=== PATIENT | male | born 1950 | race Caucasian/White ===

== ENCOUNTER 2024-01-13 17:46 | Emergency (ER) | payer MEDICARE, SELFPAY ==
--- NOTE | ~2024-01-13 | CT_ITS ---
EXAMINATION: CT HEAD WITHOUT CONTRAST CLINICAL INFORMATION: Altered mental status. COMPARISON: None available. TECHNIQUE: Contiguous axial imaging was performed from the skull base to vertex without intravenous administration of contrast. This CT examination was performed using dose optimization techniques as appropriate, variously including the following: *Automated exposure control. *Adjustment of mA and/or kV according to patient size (this includes techniques or standardized protocols for targeted exams where dose is matched to indication/reason for exam; i.e. extremities or head). *Use of iterative reconstruction technique. DLP: 759 mGy-cm FINDINGS: There is no evidence of acute intracranial hemorrhage or edematous territorial infarction. Doyle-white matter differentiation is preserved. A few foci of hypoattenuation in the periventricular and deep white matter are consistent with mild microangiopathy. Proportional prominence of the ventricles and sulcal spaces without evidence of obstructive hydrocephalus. No abnormal mass effect or midline shift. No extra-axial fluid collections. Calcific atherosclerotic disease of the intracranial internal carotid arteries. No hyperdense vessel sign. No acute soft tissue or osseous abnormalities. Mild mucosal thickening of the paranasal sinuses. The mastoid air cells and middle ear cavities are clear. Bilateral lens extractions. CT/CT head/brain wo IV con IMPRESSION: 1. No evidence of acute intracranial hemorrhage or edematous territorial infarction. 2. Mild underlying microangiopathy and generalized cerebral volume loss.
--- NOTE | ~2024-01-13 | XR_ITS ---
EXAMINATION: XR CHEST CLINICAL INFORMATION: AMS. COMPARISON: None available. TECHNIQUE: Frontal view of the chest was obtained. FINDINGS: The lungs are expanded and clear of acute process. Heart size and pulmonary vascularity is normal. There is mild elevation of left hemidiaphragm. No gross bony abnormality seen. XR/XR chest 1V IMPRESSION: Mild elevation of left hemidiaphragm. No acute process seen.
--- NOTE | 2024-01-13 17:52 | ECG_ITS ---
Test Reason : AMS Blood Pressure : / mmHG Vent. Rate : 078 BPM Atrial Rate : 078 BPM P-R Int : 176 ms QRS Dur : 102 ms QT Int : 406 ms P-R-T Axes : 053 -15 093 degrees QTc Int : 462 ms Normal sinus rhythm Nonspecific T wave abnormality Abnormal ECG No previous ECGs available Referred By: Larry Lucas Electronically Signed By:ANI KENNEY
--- NOTE | 2024-01-13 17:56 | ED_ITS ---
HPI - Altered Mental Status General Chief Complaint: Altered Mental Status Stated Complaint: ACTING CONFUSED, FOUND IN VOMIT,DIFF STANDING Time Seen by Provider: 01/13/24 17:49 Source: patient Mode of arrival: ambulatory Limitations: no limitations History of Present Illness ED Provider: robert BEAR narrative: Patient is healthy otherwise was seen normal at 08:30 when left for 10 hours when she came home at 16:30 just prior to arrival noticed him sitting on couch covered in vomitus slow to respond was not talking much when ambulance arrived no focal deficit noticed on arrival patient has a normal comprehension articulation no focal deficit noticed Related Data Allergies Allergy/AdvReac Type Severity Reaction Status Date / Time No Known Allergies Allergy Verified 01/13/24 18:06 Review of Systems 2 Review of Systems: Yes all other systems are reviewed and are negative [facility] Social History Social History Smoked in Last 30 Days: No Advance Directives: No Advance Directives Information Provided: No Physical Exam ED Vital Signs: Vital Signs - 24 hr 01/13/24 18:03 01/13/24 18:07 01/13/24 18:59 Temperature 97.5 F 97.5 F 97.6 F Pulse Rate 80 80 78 Respiratory Rate 15 15 20 Blood Pressure 147/63 H 147/63 H 136/51 L Pulse Oximetry 92 92 92 Oxygen Delivery Method Room Air Room Air Room Air 01/13/24 21:37 01/14/24 00:12 Temperature 97.5 F 97.5 F Pulse Rate 78 95 Respiratory Rate 16 17 Blood Pressure 116/59 L 136/66 Pulse Oximetry 95 59 L Oxygen Delivery Method Room Air Room Air BMI result Body Mass Index 31.0 Appearance: Alert. Oriented X3. No acute distress. Slow to respond look sick Eyes: PERRLA, No Nystagmus ENT: Pharynx normal. Oral Mucosa moist Neck: Normal inspection. Neck supple. CVS: Normal heart rate and rhythm. Pulses normal. Respiratory: No respiratory distress. Equal air entry bilateral, no wheezing/rales/rhonchi Abdomen: Soft and nontender. Bowel sounds are present, no mass palpable, no CVA tenderness Skin: Skin warm and dry. Normal skin color. Normal skin turgor. Extremities: No lower extremity edema. No calf tenderness Neuro: Oriented X 3. No motor deficit. No sensory deficit.No cerebellar signs , cranial nerves II-XII intact NIH Stroke Scale Internal: Initial- Upon Arrival Level of Consciousness: Alert Level of Consciousness Questions: Answers both questions correctly Level of Consciousness Commands: Performs both tasks correctly Best Gaze: Normal Visual: No visual loss Facial Palsy: Normal Motor Arm (Right): No drift Motor Arm (Left): No drift Motor Leg (Right): No drift Motor Leg (Left): No drift Limb Ataxia: Absent Sensory: Normal Best Language: No aphasia Dysarthia: Normal Extinction and Inattention: No abnormality Score: 0 Medications Administered Discontinued Medications Generic Name Dose Route Start Last Admin Trade Name Freq PRN Reason Stop Dose Admin Sodium Chloride 1,000 mls @ 999 mls/hr 01/13/24 17:52 01/13/24 19:12 Ns IV 01/13/24 18:52 Infused .Q1H1M ONE Infusion Sodium Chloride 1,000 mls @ 999 mls/hr 01/13/24 18:50 01/13/24 19:59 Ns IV 01/13/24 19:50 Infused .Q1H1M ONE Infusion Medical Decision Making Medical Decision Making [facility] Narrative: Patient has acute vomiting and weakness no focal findings of CVA head CT is negative for acute labs are pending will give fluids likely symptoms from metabolic encephalopathy 1845 's told us that patient ate whole marijuana chocolate bar by mistake just prior to this that made him vomit and feel sleepy and groggy 0100 patient is sleeping at this time placed on physician observation till he wakes up and sober to go home Differential Diagnosis Differential Diagnoses: The differential diagnosis associated with the presentation includes Metabolic encephalopathy/stroke/substance abuse Lab Data [facility] Lab Attestation statement: I reviewed the patient's lab results. 01/13/24 18:09 01/13/24 18:09 Labs: Lab Results 01/13/24 01/13/24 01/13/24 Range/Units 17:50 17:53 18:09 WBC 7.5 (4.8-10.8) X10*3/uL RBC 5.04 (4.60-5.80) X10*6/uL Hgb 16.0 (14.0-18.0) g/dl Hct 46.1 (42.0-52.0) % MCV 91.5 (80.0-98.0) fL MCH 31.7 (27.0-33.0) pg MCHC 34.7 (31.0-36.0) g/dl RDW 13.6 (11.0-16.0) % Plt Count 124 L (160-400) X10*3/uL MPV 11.7 (9.4-12.4) fL Immature Gran % (Auto) 0.5 H (0.0-0.4) % Neut % (Auto) 79.7 H (45-73) % Lymph % (Auto) 12.1 L (20-40) % Hamilton % (Auto) 5.2 (2-11) % Eos % (Auto) 2.4 (0-4) % Baso % (Auto) 0.1 (0-2) % Lymph # (Auto) 0.9 L (1.2-4.9) X10*3/uL Hamilton # (Auto) 0.4 (0.1-1.2) X10*3/uL Eos # (Auto) 0.2 (0.0-0.4) X10*3/uL Baso # (Auto) 0.0 (0.0-0.2) X10*3/uL Abs Immat Gran (auto) 0.04 H (0.00-0.03) X10*3/uL Absolute Neuts (auto) 5.9 (2.0-8.3) x10*3/uL Absolute Nucleated RBC 0.000 (0.0-0.012) X10*3/uL Nucleated RBC % (auto) 0.0 (0.0-0.2) /100WBC PT 11.7 (11.1-13.3) SEC Whole Blood PT 13.4 (11.1-13.5) sec INR 1.0 (0.9-1.1) Whole Blood INR 1.1 (0.9-1.1) Sodium 142 (135-145) mmol/L Potassium 4.2 (3.3-5.1) mmol/L Chloride 108 (96-108) mmol/L Carbon Dioxide 23 (22-29) mmol/L Anion Gap 15 (12-20) BUN 16 (9-16) mg/dL Creatinine 0.93 (0.5-1.4) mg/dL Estim Creat Clear Calc 90.4 Estimated GFR > 60 POC Glucose 183 H (60-115) mg/dL Random Glucose 177 H (60-115) mg/dL Calcium 8.8 (8.4-10.2) mg/dL Magnesium 2.2 (1.6-2.6) mg/dL Total Bilirubin 0.4 (0.0-1.0) mg/dL AST 19 (5-37) U/L ALT 24 (0-40) U/L Alkaline Phosphatase 94 (39-117) U/L Total Protein 7.0 (6.5-8.0) g/dL Albumin 4.2 (3.5-5.0) g/dL Lipase 14 (8-78) U/L Discharge Plan Discharge Clinical Impression: Altered mental status, Drug ingestion, accidental Patient Disposition: Still a Patient Instructions: Altered Mental Status (ED), Adult Overdose (ED) Print Language: Grenadian
[2024-01-13 17:59] LABS: Glucose, Whole Blood 183 mg/dL (60-115)
[2024-01-13 18:03] VITALS: BP 147/63; PULSE 80; RESP 15; TEMP 36.4; O2SAT 92; BMI 31.0
[2024-01-13 18:07] VITALS: BP 147/63; PULSE 80; RESP 15; TEMP 36.4; O2SAT 92
[2024-01-13] MEDS: 0.9 % Sodium Chloride 1,000 ML 999 ML IV ×2 (18:11→18:58)
[2024-01-13 18:13] LABS: MANUAL DIFF FLAG NO
[2024-01-13 18:22] LABS: Prothrombin Time Whole Bld POC 13.4 sec (11.1-13.5); ~PT, ~INR - Anti Coag Clinic 1.1 (0.9-1.1)
[2024-01-13 18:28] LABS: Alanine Aminotransferase 24 U/L (0-40); Albumin Level 4.2 g/dL (3.5-5.0); Alkaline Phosphatase 94 U/L (39-117); Anion Gap 15 (12-20); Aspartate Amino Transferase 19 U/L (5-37); Bilirubin Total 0.4 mg/dL (0.0-1.0); Blood Urea Nitrogen 16 mg/dL (9-16); Calcium 8.8 mg/dL (8.4-10.2); Carbon Dioxide 23 mmol/L (22-29); Chloride 108 mmol/L (96-108); Creatinine Clr Calc Pharmacy 90.4; Estimated Glomerular Filt Rate > 60; Glucose Random 177 mg/dL (60-115); Lipase 14 U/L (8-78); Magnesium 2.2 mg/dL (1.6-2.6); Potassium 4.2 mmol/L (3.3-5.1); Prothrombin Time 11.7 SEC (11.1-13.3); Sodium 142 mmol/L (135-145)
[2024-01-13 18:45] LABS: Basophils Percent Auto 0.1 % (0-2); Eosinophils Absolute Auto 0.2 X10*3/uL (0.0-0.4); Eosinophils Percent Auto 2.4 % (0-4); Hematocrit 46.1 % (42.0-52.0); Imm Gran Abs Auto 0.04 X10*3/uL (0.00-0.03); Imm Gran Pct Auto 0.5 % (0.0-0.4); Lymphocytes Absolute Auto 0.9 X10*3/uL (1.2-4.9); Lymphocytes Percent Auto 12.1 % (20-40); Mean Corpuscular HGB Conc 34.7 g/dl (31.0-36.0); Mean Corpuscular Hemoglobin 31.7 pg (27.0-33.0); Mean Corpuscular Volume 91.5 fL (80.0-98.0); Mean Platelet Volume 11.7 fL (9.4-12.4); Monocytes Absolute Auto 0.4 X10*3/uL (0.1-1.2); Monocytes Percent Auto 5.2 % (2-11); Neutrophils Absolute Auto 5.9 x10*3/uL (2.0-8.3); Neutrophils Percent Auto 79.7 % (45-73); Platelet Count 124 X10*3/uL (160-400); Red Blood Count 5.04 X10*6/uL (4.60-5.80); Red Cell Distribution Width 13.6 % (11.0-16.0); White Blood Count 7.5 X10*3/uL (4.8-10.8)
[2024-01-13 18:59] VITALS: BP 136/51; PULSE 78; RESP 20; TEMP 36.4; O2SAT 92
--- NOTE | 2024-01-13 18:59 | PC.NURSE ---
this rn assumed care of pt. pt able to follow commands at this time. pt disclosed at this time that he ate a full marijuana chocolate bar. pt alert. normal sinus on tele 79-80bpm. iv fluid bolus begun at this time.
[2024-01-13 21:37] VITALS: BP 116/59; PULSE 78; RESP 16; TEMP 36.4; O2SAT 95
[2024-01-14 00:12] VITALS: BP 136/66; PULSE 95; RESP 17; TEMP 36.4; O2SAT 59
--- NOTE | 2024-01-14 01:03 | PC.NURSE ---
pt resting in stretcher, no acute distress noted. respirations even and unlabored.
[2024-01-14 06:36] VITALS: BP 153/64; PULSE 55; RESP 17; TEMP 37.1; O2SAT 97
--- NOTE | 2024-01-14 06:37 | PC.NURSE ---
pt up at bedside obtaining urine sample in urinal, with steady gait
[2024-01-14 06:53] LABS: Appearance Urine Clear; Color Urine Yellow; Glucose Urine UA >=1000 mg/dL (Negative); Leukocyte Esterase Urine Negative (Negative); Nitrite Urine Negative (Negative); Specific Gravity - Urine >= 1.030 (1.005-1.025); UMIC TRIGGER UACC YES; Urine Blood Negative (Negative); Urine Ketones Trace mg/dL (Negative); Urine Protein Negative (Neg-Trace)
[2024-01-14 06:56] LABS: Amphetamine Screen Urine Not Detected (Not Detect); Barbiturates, Urine Not Detected (Not Detect); Benzodiazepines Screen Urine Not Detected (Not Detect); Buprenorphine Scr Not Detected (Not Detect); Cannabinoid Screen Urine POSITIVE (Not Detect); Cocaine Screen Urine Not Detected (Not Detect); Fentanyl, urine Not Detected (Not Detect); Methadone Screen, Urine Not Detected (Not Detect); Opiate Screen Urine Not Detected (Not Detect); Oxycodone Screen Urine Not Detected (Not Detect); Phencyclidine Screen Urine Not Detected (Not Detect)
--- NOTE | 2024-01-14 07:10 | PC.NURSE ---
report franko from previous rn. pt is caox4 with brisk reflexes to all ext, his speach is clear and appropriate and his face is symmetrical. pt's skinm is wpd, his radial pulse is stroong and regular, his resps are nonlabnored. plan of care is to reeval once ua is complete. pt has a sober ride at bedside and he understands the plan of care
[2024-01-14 07:43] VITALS: BP 153/78; PULSE 58; RESP 16; TEMP 36.9; O2SAT 98
[2024-01-14 07:51] LABS: Bacteria Urine None Seen (None Seen); Hyaline Casts Urine 0-2 /LPF (0-2); RBC Urine 0-2 /HPF (0-2); Squamous Epithelial Cell Urine 0-2 /HPF (0-2); WBC Urine 0-5 /HPF (0-5)
== END 2024-01-14 07:45 | disposition home or self-care (01) ==
PROVIDERS: Emergency Provider Internal Medicine; PCP Internal Medicine
DX: R41.82 Altered mental status, unspecified (principal); T50.905A Adverse effect of unspecified drugs, medicaments and biological substances, initial encounter; Y92.9 Unspecified place or not applicable; R11.10 Vomiting, unspecified
CPT/HCPCS: 36415; 70450; 71045; 80053; 80307; 81001; 81003; 82947; 83690; 83735; 85025; 85610; 93005; 96360; 96361; 99284; 99285

== ENCOUNTER → 2024-01-13 17:52 | Outpatient (BNV) | payer MEDICARE, SELFPAY | PROVIDERS: Emergency Provider Internal Medicine; PCP Internal Medicine; Visit Provider Internal Medicine | DX: R41.82 Altered mental status, unspecified (principal); R94.31 Abnormal electrocardiogram [ECG] [EKG] | CPT/HCPCS: 93010 ==